=== PATIENT | female | born 1995 | race Hispanic/Latino ===

== ENCOUNTER 2025-05-02 23:22 | Emergency (ER) | payer OTHER ==
[2025-05-04 00:45] LABS: Chlamydia by PCR, Vaginal Swab Not Detected (NotDetected); GC by PCR, Vaginal Swab Not Detected (NotDetected)
== END 2025-05-03 01:55 | disposition home or self-care (01) ==
LOC: CSHERS 23:22
DX: R10.32 Left lower quadrant pain (principal)
CPT/HCPCS: 76856; 87480; 87491; 87510; 87591; 87660; 93976